=== PATIENT | male | born 1970 | race African-American/Black ===

== ENCOUNTER 2024-12-21 13:02 | Inpatient (IN) | payer SELFPAY ==
[2024-12-21 15:00] VITALS: BMI 45.5
[2024-12-21] MEDS ORDERED: Ondansetron PF 4 MG/2 ML Vial IVP PRN (16:38)
[2024-12-21] MEDS: Acetaminophen 325 MG TAB PO PRN (16:55)
[2024-12-21] MEDS ORDERED: Glucagon 1 MG/ML KIT IM PRN (19:43)
[2024-12-21] MEDS ORDERED: Dextrose 50% Abboject 50 ML SYRINGE SLOW IVP PRN (19:43)
[2024-12-21 20:25] LABS: Cardiac Risk 4.0 (Less than 4.5); Cholesterol 117.0 mg/dl (< 200 Desired); HDL Cholesterol 29.0 mg/dL (>60 Neg Risk); LDL Cholesterol, Calculated 68.0 mg/dL; Triglycerides 100.0 mg/dL (Less than 150)
[2024-12-22 04:59] LABS: #Basophils 0.06 10x3/uL (0.0-0.2); #Eosinophils 0.29 10x3/uL (0.0-0.7); #Monocytes 0.59 10x3/uL (0.11-0.59); #Neutrophils 3.96 10x3/uL (1.40-6.50); %Basophils 0.9 % (0.0-1.0); %Eosinophils 4.4 % (0.0-10.0); %Lymphocytes 26.1 % (21.0-51.0); %Monocytes 8.9 % (0.0-10.0); %Neutrophils 59.4 % (42.0-75.0); Hematocrit 44.7 % (42.0-52.0); Hemoglobin 14.3 g/dL (14.0-18.0); Mean Corpuscular Hemoglobin 29.9 pg (27.0-31.0); Mean Corpuscular Volume 93.5 fL (78.0-98.0); Platelet Count 212 10x3/uL (130-400); Red Blood Cell (RBC) Count 4.78 mill/uL (4.70-6.10); White Blood Cell (WBC) Count 6.66 10x3/uL (4.8-10.8)
[2024-12-22 05:29] LABS: ALT (SGPT) 20 U/L (Less than 45); AST (SGOT) 14 U/L (11-34); Albumin 3.5 g/dL (3.1-4.5); Alkaline Phosphatase 117 U/L (40-110); Anion Gap 12 mmol/L (10-20); BUN (Urea Nitrogen) 17 mg/dL (8.4-25.7); Bilirubin, Total 0.5 mg/dL (0.3-1.2); Calc. Creatinine Clearance 176 mL/min (70-130); Calcium 9.1 mg/dL (7.8-10.44); Carbon Dioxide 26 mmol/L (22-29); Chloride 102 mmol/L (98-107); Globulin 3.0 g/dL (2.4-3.5); Glucose 117 mg/dL (70-105); Potassium 3.9 mmol/L (3.5-5.1); Sodium 136 mmol/L (136-145)
[2024-12-22] MEDS ORDERED: Communication Order-Pharmacy FS SCH (08:15)
[2024-12-22] MEDS ORDERED: Enoxaparin 40 MG (0.4 mL) SYRINGE SC SCH (09:00)
[2024-12-22] MEDS ORDERED: Adenosine 6 mg (2 mL) VIAL ONE (09:01)
[2024-12-22] MEDS ORDERED: Lidocaine 1% (PF) 30 ML VIAL ONE (09:02)
[2024-12-22] MEDS ORDERED: Nitroglycerin 50 MG/250 ML BOT 250 ML ONE (09:02)
[2024-12-22] MEDS ORDERED: Heparin 10,000 UNITS/ 10 ML VIAL ONE (09:02)
[2024-12-22] MEDS ORDERED: Nitroglycerin 0.4 MG TAB (25 Tab Bottle) SL PRN (10:10)
[2024-12-23] MEDS: PNEUMOC 20-VAL CONJ-DIP CRM/PF 0.5 ML SYRINGE IM ONE (08:37)
[2024-12-23] MEDS: FLU (Fluarix Triv) 25-26 (6MOS UP)/PF 45 MCG/0.5 ML Syringe IM ONE (08:37)
[2024-12-23 09:07] VITALS: BMI 45.5
[2024-12-23] MEDS: Albuterol 200 PUFF INH INH SCH (11:14)
[2024-12-23 15:36] VITALS: BP 148/92; TEMP 98.3
[2024-12-24] MEDS ORDERED: Metoprolol Succinate XL 25 MG ER.TAB PO SCH (09:00)
== END 2024-12-23 16:38 | disposition home or self-care (01) | DRG 287 ==
LOC: OBS 14:51 → OBSVTOIN 12-22 16:08
PROVIDERS: ADMIT Internal Medicine; ATTEND Internal Medicine
PROC: B2111ZZ Fluoroscopy of Multiple Coronary Arteries using Low Osmolar Contrast (ICD-10-PCS; principal; 2024-12-22)
PROC: 4A023N7 Measurement of Cardiac Sampling and Pressure, Left Heart, Percutaneous Approach (ICD-10-PCS; 2024-12-22)
PROC: 3E02340 Introduction of Influenza Vaccine into Muscle, Percutaneous Approach (ICD-10-PCS; 2024-12-22)
PROC: 3E0234Z Introduction of Serum, Toxoid and Vaccine into Muscle, Percutaneous Approach (ICD-10-PCS; 2024-12-22)
DX: R55 Syncope and collapse (principal); N17.9 Acute kidney failure, unspecified; I47.20 Ventricular tachycardia, unspecified; Z68.42 Body mass index [BMI] 45.0-49.9, adult; I10 Essential (primary) hypertension; E66.01 Morbid (severe) obesity due to excess calories; E11.9 Type 2 diabetes mellitus without complications; M17.0 Bilateral primary osteoarthritis of knee; F10.90 Alcohol use, unspecified, uncomplicated; R07.9 Chest pain, unspecified; Z98.890 Other specified postprocedural states; Z72.0 Tobacco use; Z79.899 Other long term (current) drug therapy; Z23 Encounter for immunization
CPT/HCPCS: 0439T; 36415; 36416; 78472; 80053; 80061; 83036; 85025; 93306; 93458; 99152; A9560; C1769; C1894; J0153; J1644; J2003; J2250; J3010; J7030; Q9957